=== PATIENT | female | born 1995 | race Caucasian/White ===

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

== ENCOUNTER → 2017-01-29 | Outpatient (CLI) | payer OTHER ==
[2017-01-29 11:11] LABS: URINE BILIRUBIN - DIPSTICK NEGATIVE (NEG); URINE BLOOD TRACE-INTACT (NEG)
== END ==
LOC: LAB 10:58
PROVIDERS: Internal Medicine Adolescent Medicine
DX: R39.15 Urgency of urination (principal)

== ENCOUNTER → 2017-02-18 | Outpatient (CLI) | payer OTHER ==
[2017-02-18 10:23] LABS: HEMOGLOBIN 12.7 g/dL (12.2-16.2); LYMPH # 1.9 K/mm3 (0.7-4.5); LYMPH % 12.9 % (10-50.0)
[2017-02-18 11:07] LABS: BILIRUBIN, INDIRECT 0.23 mg/dL (0-0.9); BUN 13 mg/dL (7-18); GFR (ESTIMATED) 81 ML/MIN (59-)
== END ==
LOC: LAB 09:32
PROVIDERS: Internal Medicine Cardiovascular Disease
DX: R00.0 Tachycardia, unspecified (principal); I10 Essential (primary) hypertension; R94.31 Abnormal electrocardiogram [ECG] [EKG]

== ENCOUNTER → 2017-02-21 | Outpatient (CLI) | payer OTHER ==
[2017-02-21 19:10] LABS: FREE THYROXIN INDEX 10.8 ug/dl (5.93-13.13)
== END ==
LOC: LAB 15:47
PROVIDERS: Internal Medicine Adolescent Medicine
DX: E05.90 Thyrotoxicosis, unspecified without thyrotoxic crisis or storm (principal)